=== PATIENT | female | born 2000 | race Caucasian/White ===

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

== ENCOUNTER 2021-01-06 08:07 | Emergency (ER) | payer OTHER, SELFPAY ==
[2021-01-06 08:16] VITALS: BP 137/87; PULSE 117; RESP 18; TEMP 36.9; O2SAT 99; BMI 26.1
--- NOTE | 2021-01-06 08:18 | CT_ITS ---
WS: [id number] CT ABDOMEN PELVIS TECHNIQUE: Contrast-enhanced CT of the abdomen and pelvis with coronal and sagittal reformatted image s. CLINICAL INFORMATION: abd pain COMPARISON: None. DLP: 1438.[address] scans at [facility] use at least one of these dose optimization techniques: automat ed exposure control; mA and/or kV adjustment per patient size (includes targeted exams where dose is matched to clinical indication); or iterative reconstruction. FINDINGS: Moderate amount of free fluid in the pelvis. Heterogeneous uterine enhancement with fluid in the endo metrium. Lobulated thickening of the myometrium with low-attenuation may represent fibroid along the dorsal fundus with mass effect on the endometrium. This can be further evaluated with ultrasound. Enl arged multicystic ovaries bilaterally with heterogeneous enhancement. Left ovarian cyst or corpus lut eum cyst measuring 19mm. Small amount fluid in the pericolic gutters bilaterally. Appendix in the right lower quadrant appears decompressed with intraluminal air. No definite evidence of acute appendicitis. Normal liver. A few tiny hepatic cysts. Normal gallbladder. Normal portal vein and splenic vein. Normal GE junction. Lung bases are well aerated. Normal spleen. Normal pancreas. Adrenal glands are n ormal. Normal renal parenchymal enhancement. No hydronephrosis. Normal caliber abdominal aorta. No abdominal or pelvic lymphadenopathy. No inguinal lymphadenopathy. CT/CT abdomen pelvis w con* [id number] IMPRESSION: 1. Appendix in the right lower quadrant appears decompressed with intraluminal air. No evidence of acute appendicitis. 2. Moderate amount of pelvic fluid with heterogeneous uterine enhancement. Flu id in the endometrial canal. Lobulated dorsal fundus may represent fibroid. Thi s can be further evaluated with ultrasound. 3. Multifollicular ovaries bilaterally with cyst or corpus luteum cyst measuri ng 19 mm 4. No evidence of small large bowel obstruction. 5. No other significant findings. Notified Ronny Mccarthy DO at 01/06/2021 9:39 AM.
[2021-01-06 08:22] VITALS: BP 113/81; PULSE 111; RESP 18; O2SAT 98
--- NOTE | 2021-01-06 08:36 | ED_ITS ---
HPI - Abdominal Pain General: Chief Complaint: Abdominal Pain Stated Complaint: LOWER ABD PAIN Time Seen by Provider: 01/06/21 08:09 History of Present Illness: HPI narrative: 20-year-old female presents emergency room with complaint of lower pelvic abdominal pain. Initially began across lower abdomen is migrated now to the more to the right lower quadrant. Patient had her period 2 weeks ago seem to be normal.. Patient has cramping- like pain denies any hematochezia melena hematemesis coffee-ground emesis no vomiting or diarrhea. Denies dysuria urgency or frequency no history of nephrolithiasis. MD elicited complaint: abdominal pain Onset (ago): hour(s) Pain Consistency: constant Location: RLQ, LLQ, R flank and Suprapubic Severity: mild Quality: cramping Radiation: R flank Migration to: RLQ Exacerbating factors: movement Relieving factors: rest Associated Symptoms: Reports bloating, GI cramping, nausea and poor appetite; Denies anorexia, belching, change in bowel habits, change in stool character, chills, coffee ground emesis, constipation, diarrhea, dyspepsia, dysuria, excessive flatus, fever(s), heartburn, hematochezia, hematuria, hematemesis, fecal incontinence, loose stools, melena, syncope and vomiting Related Data: Date of Last Menstrual Period: 11/29/20 Review of Systems Const: Denies: fever(s) or chills ENMT: Denies: throat pain, ear or mastoid pain, nasal discharge or nasal congestion Card: Denies: syncope Resp: Denies: dyspnea, productive cough or non-productive cough GI: Reports: nausea, bloating and GI cramping; Denies: vomiting, hematemesis, coffee ground emesis, heartburn, diarrhea, constipation, excessive flatus, fecal incontinence, change in bowel habits, change in stool character, hematochezia or melena : Denies: dysuria or hematuria Skin/Breast: Denies: rash or pruritus PFS ED PFSH: Medical History (Updated 01/06/21 @ 11:03 by Ronny Mccarthy DO) Anemia Surgical History No history of previous surgery Family History Grandmother Cancer Diabetes Mother Hypertension Father CHF (congestive heart failure) Denies family history of Clotting disorder Lung disease Stroke Social History Smoking and tobacco status: never smoked Alcohol intake: never Adopted: No Lives independently: Yes Household members: friend(s) Housing: Apartment Marital status: Single Number of children: 0 Highest education level completed: High School Graduate service: No Current occupational status: employed Current occupation: [employer] Pets and animals: No History of recent travel: No Current gender identity: Female Female Reproductive History: Date of last menstrual period: 11/29/20 Physical Exam Const: COMMON NORMALS: no acute distress GENERAL APPEARANCE: cooperative and comfortable ORIENTATION/CONSCIOUSNESS: Yes awake, Yes oriented to person, Yes oriented to place and Yes oriented to time HENMT: COMMON NORMALS: normocephalic, atraumatic and hearing grossly normal bilaterally HEAD & SCALP: normocephalic and atraumatic Neck/C-Spine: COMMON NORMALS: no JVD Resp: COMMON NORMALS: normal respiratory effort, No retractions, No use of accessory muscles and clear to auscultation bilaterally AUSCULTATION: clear to auscultation bilaterally Cardio: COMMON NORMALS: no JVD, regular rate, regular rhythm and No murmurs present (Cardio) RATE: regular rate RHYTHM: regular rhythm GI: COMMON NORMALS: Soft to palpation and No hepatosplenomegaly present AUSCULTATION: Yes normoactive bowel sounds PALPATION: Yes Soft to palpation, No Tenderness to palpation present (GI), No Guarding due to palpation present (GI) and Yes No hepatosplenomegaly present Extremity: COMMON NORMALS: normal to inspection, capillary refill normal, no clubbing, cyanosis or edema, no calf tenderness and no pedal edema Neuro: SENSORIUM/ORIENTATION: Yes oriented to person, Yes oriented to place and Yes oriented to time Skin: COMMON NORMALS: no rashes or lesions noted GENERAL SKIN EXAM: no rashes or lesions noted Course Vital Signs: Vital signs: Vital Signs Temperature 98.7 F 01/06/21 11:26 Pulse Rate 97 01/06/21 11:26 Respiratory Rate 18 01/06/21 11:26 Blood Pressure 117/66 01/06/21 11:26 Pulse Oximetry 97 01/06/21 11:26 MDM - Abdominal Pain MDM Narrative: Medical decision making narrative: CT and ultrasound show pelvic fluid consistent with a ruptured ovarian cyst. Will treat as such with pain medications nausea and discussed with the patient follow-up with her primary care doctor return if worsens. Lab Data: Labs: Lab Results 01/06/21 01/06/21 01/06/21 Range/Units 08:39 08:43 08:43 WBC 6.8 (4.5-13.0) 10^3/ uL RBC 4.26 (4.1-5.3) 10^6/u L Hgb 11.8 (11.5-15.3) g/dL Hct 35.2 L (37.0-47.0) % MCV 82.6 (81-99) fL MCH 27.7 L (28.0-34.0) pg MCHC 33.5 (30.0-36.0) g/dL RDW 12.8 (12.1-15.1) % Plt Count 256 (130-400) 10^3/c mm MPV 9.3 (7.4-10.4) fL Neut % (Auto) 57.4 % Lymph % (Auto) 31.5 % [place] % (Auto) 8.4 % Eos % (Auto) 2.2 % Baso % (Auto) 0.4 % Neut # (Auto) 3.91 (1.8-8.0) 10^3/u L Lymph # (Auto) 2.2 (1.5-6.5) 10^3/u L [place] # (Auto) 0.6 (0.2-0.9) 10^3/u L Eos # (Auto) 0.2 (0.0-0.8) 10^3/u L Baso # (Auto) 0.0 (0.0-0.1) 10^3/u L Nucleated RBC % (a uto) 0 % Nucleated RBCs # 0.0 /100WBC Sodium 137 (136-145) mmol/L Potassium 3.9 (3.5-5.1) mmol/L Chloride 104 (98-107) mmol/L Carbon Dioxide 23 (22-29) mmol/L Anion Gap 13.9 (5-19) BUN 12 (6-20) mg/dL Creatinine 0.5 (0.5-0.9) mg/dL GFR Calculation 158.9 H (90-130) mL/min Glucose 97 (65-115) mg/dL Calculated Osmolal ity 284 L (285-295) mOsm/k g Calcium 8.6 (8.5-10.5) mg/dL Total Bilirubin 0.7 (0.15-1.2) mg/dL AST 15 (0-32) U/L ALT 14 (0-33) U/L Alkaline Phosphata se 67 (35-105) IU/L Total Protein 6.9 (6.6-8.7) g/dL Albumin 4.5 (3.5-5.2) g/dL Globulin 2.4 (1.3-4.6) g/dL Lipase 37 (13-60) U/L HCG, Qual (Negative) Urine Color Yellow (Yellow) Urine Appearance Clear (CLEAR) Urine pH 5 (5-7) Ur Specific Gravit y 1.020 (1.005-1.030) Urine Protein Neg (Negative) Urine Glucose (UA) Norm (Normal) Urine Ketones Negative (Negative) Urine Blood Neg (Negative) Urine Nitrate Negative (Negative) Urine Bilirubin Neg (Negative) Urine Urobilinogen Norm (Negative) mg/dL Ur Leukocyte Diamond ase Negative (Negative) 01/06/21 Range/Units 08:43 WBC (4.5-13.0) 10^3/ uL RBC (4.1-5.3) 10^6/u L Hgb (11.5-15.3) g/dL Hct (37.0-47.0) % MCV (81-99) fL MCH (28.0-34.0) pg MCHC (30.0-36.0) g/dL RDW (12.1-15.1) % Plt Count (130-400) 10^3/c mm MPV (7.4-10.4) fL Neut % (Auto) % Lymph % (Auto) % [place] % (Auto) % Eos % (Auto) % Baso % (Auto) % Neut # (Auto) (1.8-8.0) 10^3/u L Lymph # (Auto) (1.5-6.5) 10^3/u L [place] # (Auto) (0.2-0.9) 10^3/u L Eos # (Auto) (0.0-0.8) 10^3/u L Baso # (Auto) (0.0-0.1) 10^3/u L Nucleated RBC % (a uto) % Nucleated RBCs # /100WBC Sodium (136-145) mmol/L Potassium (3.5-5.1) mmol/L Chloride (98-107) mmol/L Carbon Dioxide (22-29) mmol/L Anion Gap (5-19) BUN (6-20) mg/dL Creatinine (0.5-0.9) mg/dL GFR Calculation (90-130) mL/min Glucose (65-115) mg/dL Calculated Osmolal ity (285-295) mOsm/k g Calcium (8.5-10.5) mg/dL Total Bilirubin (0.15-1.2) mg/dL AST (0-32) U/L ALT (0-33) U/L Alkaline Phosphata se (35-105) IU/L Total Protein (6.6-8.7) g/dL Albumin (3.5-5.2) g/dL Globulin (1.3-4.6) g/dL Lipase (13-60) U/L HCG, Qual Negative (Negative) Urine Color (Yellow) Urine Appearance (CLEAR) Urine pH (5-7) Ur Specific Gravit y (1.005-1.030) Urine Protein (Negative) Urine Glucose (UA) (Normal) Urine Ketones (Negative) Urine Blood (Negative) Urine Nitrate (Negative) Urine Bilirubin (Negative) Urine Urobilinogen (Negative) mg/dL Ur Leukocyte Diamond ase (Negative) Discharge Plan Discharge Patient Disposition: Home Clinical Impression: Ovarian cyst rupture Condition: Stable Prescriptions: New hydrocodone-acetaminophen 5-325 mg tablet 1 tab PO Q6H PRN (Reason: pain) Qty: 10 RF: 0 Zofran 4 mg tablet 4 mg PO Q6H PRN (Reason: nausea and vomiting) Qty: 10 RF: 0 No Action Ortho-Novum (28) 1-35 mg-mcg tablet 1 tab PO DAILY RF: 0 Discharge Orders: Discharge ED (Routine); Ordered 01/06/21 Ordered By: Ronny Mccarthy Patient Instructions: Opioid Safety Coding Level of Care Code ED Flight Line Service Attendant for Chg Fwd Exam Comprehensive
[2021-01-06 08:49] VITALS: BP 113/81; PULSE 110; RESP 18; O2SAT 95
[2021-01-06] MEDS: ondansetron 2 mg/ML SDV 2 mL 4 MG IVP (08:53)
[2021-01-06] MEDS: sodium chloride 0.9% 1,000 ML 999 ML IV (08:53)
[2021-01-06 08:54] LABS: Add Urine Microscopic? NO; Charge for UA Resulting for Rev
[2021-01-06 08:55] LABS: Basophils % 0.4 %; Eosinophils # 0.2 10^3/uL (0.0-0.8); Eosinophils % 2.2 %; Hematocrit 35.2 % (37.0-47.0); Hemoglobin 11.8 g/dL (11.5-15.3); Lymphocytes # 2.2 10^3/uL (1.5-6.5); Lymphocytes % 31.5 %; Mean Corpuscular HGB Conc 33.5 g/dL (30.0-36.0); Mean Corpuscular Hemoglobin 27.7 pg (28.0-34.0); Mean Corpuscular Volume 82.6 fL (81-99); Mean Platelet Volume 9.3 fL (7.4-10.4); Monocytes # 0.6 10^3/uL (0.2-0.9); Monocytes % 8.4 %; Neutrophils # 3.91 10^3/uL (1.8-8.0); Neutrophils % 57.4 %; Nucleated Red Blood Cells % 0 %; Platelet Count 256 10^3/cmm (130-400); Red Blood Count 4.26 10^6/uL (4.1-5.3); Red Cell Distribution Width 12.8 % (12.1-15.1); White Blood Count 6.8 10^3/uL (4.5-13.0)
[2021-01-06 09:10] LABS: HCG, Serum Qual Negative (Negative)
[2021-01-06 09:11] LABS: Bilirubin Urine Neg (Negative); Blood Urine Neg (Negative); Glucose Urine UA Norm (Normal); Ketones Urine Negative (Negative); Leukocyte Esterase Urine Negative (Negative); Nitrate Urine Negative (Negative); Protein Urine Neg (Negative); Urine Appearance Clear (CLEAR); Urine Color Yellow (Yellow); Urobilinogen Urine Norm (Negative); pH Urine 5 (5-7)
[2021-01-06 09:13] LABS: Alanine Aminotransferase 14 U/L (0-33); Albumin Level 4.5 g/dL (3.5-5.2); Alkaline Phosphatase 67 IU/L (35-105); Anion Gap 13.9 (5-19); Aspartate Amino Transferase 15 U/L (0-32); Blood Urea Nitrogen 12 mg/dL (6-20); Calcium 8.6 mg/dL (8.5-10.5); Carbon Dioxide 23 mmol/L (22-29); Chloride 104 mmol/L (98-107); Globulin 2.4 g/dL (1.3-4.6); Glomerular Filtration Rate 158.9 mL/min (90-130); Glucose 97 mg/dL (65-115); Lipase 37 U/L (13-60); Osmolality Calculated 284 mOsm/kg (285-295); Potassium 3.9 mmol/L (3.5-5.1); Sodium 137 mmol/L (136-145); Total Bilirubin 0.7 mg/dL (0.15-1.2); Total Protein 6.9 g/dL (6.6-8.7)
[2021-01-06] MEDS: iohexol 300 mg/mL 100 mL Btl IV (09:24)
--- NOTE | 2021-01-06 09:43 | US_ITS ---
WS: [id number] ULTRASOUND PELVIS TECHNIQUE: Transabdominal. CLINICAL INFORMATION: pain : No. COMPARISON: CT earlier today FINDINGS: Uterus Orientation: Anteverted. Size: 8.5 cm x 4.8 cm x 3.2 cm Masses: Heterogeneous lobulation dorsal fundus likely representing fibroid Cervix: Normal Endometrium: Normal. Endometrium thickness: 1.0 cm. Adnexa: Left ovarian cyst measuring 1.6 x 1.5 x 1.9 cm Right ovary size: 3.8 cm x 2.0 cm x 1.6 cm. Right ovary volume: 6.3 ccm3 Left ovary size: 2.8 cm x 2.2 cm x 1.3 cm. Left ovary volume: 4.3 ccm3 Free fluid: Moderate Other findings: None. US/US pelvic complete* [id number] IMPRESSION: 1. Lobulation along the dorsal fundus measuring 1.7 x 1.6 x 1.9 cm likely repr esents fibroid. 2. Normal endometrium for patient this age measuring 10 mm. 3. No adnexal masses. 4. Left ovarian cyst 1.6 x 1.5 x 1.9 cm 5. Right ovary is normal. 6. Moderate free fluid in the cul-de-sac.
[2021-01-06] MEDS: ketorolac 30 mg/mL INJ IVP (10:00)
[2021-01-06 10:49] VITALS: BP 110/74; PULSE 100; RESP 18; O2SAT 98
[2021-01-06 11:26] VITALS: BP 117/66; PULSE 97; RESP 18; TEMP 37.1; O2SAT 97
== END 2021-01-06 11:28 | disposition home or self-care (01) ==
PROVIDERS: Nurse Practitioner Family; Emergency Provider Family Medicine
DX: N83.202 Unspecified ovarian cyst, left side (principal)
CPT/HCPCS: 74177; 76856; 80053; 81003; 83690; 84703; 85025; 96361; 96374; 96375; 99284; J1885; J2405; J7030; Q9967

== ENCOUNTER → 2021-06-30 15:36 | Outpatient (BNVA) | payer OTHER, SELFPAY | PROVIDERS: Visit Provider Family Medicine | DX: Z20.822 Contact with and (suspected) exposure to COVID-19 (principal); Z20.828 Contact with and (suspected) exposure to other viral communicable diseases | CPT/HCPCS: 87635 ==

== ENCOUNTER 2022-06-01 14:06 | Emergency (ER) | payer OTHER, SELFPAY ==
[2022-06-01 14:11] VITALS: BP 127/83; PULSE 105; RESP 18; TEMP 36.8; O2SAT 98; BMI 29.9
--- NOTE | 2022-06-01 14:19 | ED_ITS ---
HPI - General Adult General: Chief complaint: Needlestick/Injury/Exposure Stated complaint: Exposure to pt blood Time Seen by Provider: 06/01/22 14:09 History of Present Illness: Patient is a 22-year-old female who comes to the ED he after an accidental needlestick injury to her right hand. 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 She was in t he OR and during the procedure a bone hook punctured the distal end of right index finger. Denies any pain or other complaints. She does not know any medical history on the patient who was being operated on. Associated symptoms: Deny chest pain, dyspnea, headache(s), nausea, rash, palpitations or vomiting Review of Systems Const: Denies: fever(s), chills or fatigue Eyes: Denies: change in vision or eye discomfort ENMT: Denies: throat pain, odynophagia, nasal discharge or nasal congestion Card: Denies: chest pain, palpitations, edema, swelling of feet/ankles, dyspnea on exertion or orthopnea Resp: Denies: dyspnea, productive cough or non-productive cough GI: Denies: abdominal pain, nausea, vomiting, diarrhea, constipation or charlie tochezia : Denies: flank pain, dysuria or hematuria Musc: Denies: neck pain, back pain or extremity swelling Skin/Breast: Reports: new lesions (Puncture wound to right index finger); Denies: rash Neuro: Denies: headache(s), numbness in extremities or weakness in extremities PFS ED PFSH: Medical History Anemia Surgical History No history of previous surgery Family History Grandmother Cancer Diabetes Mother Hypertension Father CHF (congestive heart failure) Denies family history of Clotting disorder Lung disease Stroke Social History Smoking and tobacco status: never smoked Alcohol intake: never Adopted: No Lives independently: Yes Household members: friend(s) Housing: Apartment Marital status: Single Number of children: 0 Highest education level completed: High School Graduate service: No Current occupational status: employed Current occupation: [employer] Pets and animals: No History of recent travel: No Current gender identity: Female Female Reproductive History: Date of last menstrual period: 05/27/22 Physical Exam Const: COMMON NORMALS: no acute distress, patient oriented x3, healthy appearing and alert GENERAL APPEARANCE: cooperative and comfortable HENMT: COMMON NORMALS: normocephalic HEAD & SCALP: normocephalic MOUTH: Normal oral and palatal mucosa present THROAT: posterior oropharynx normal and uvula midline Neck/C-Spine: COMMON NORMALS: supple GENERAL: Yes normal visual inspection Resp: COMMON NORMALS: normal respiratory effort, No retractions, No use of accessory muscles and clear to auscultation bilaterally AUSCULTATION: clear to auscultation bilaterally Cardio: COMMON NORMALS: regular rate, regular rhythm, S1 normal heart sound present, S2 normal heart sound present, No gallops present (Cardio), No clicks present (Cardio), No murmurs present (Cardio) and Peripheral pulses 2+ throughout RATE: regular rate RHYTHM: regular rhythm HEART SOUNDS: S1 normal heart sound present and S2 normal heart sound present PERIPHERAL PULSES: Peripheral pulses 2+ throughout GI: COMMON NORMALS: Normal to inspection, nondistended, normoactive bowel sounds present, Soft to palpation, non-tender and no masses PALPATION: Yes Soft to palpation : COMMON NORMALS: Yes no CVA tenderness BLADDER/KIDNEY EXAM: Yes no CVA tenderness Back/Pelvis: COMMON NORMALS: no CVA tenderness Extremity: NARRATIVE EXTREMITY EXAM: Patient has small superficial appearing puncture wound to distal pad of right index finger. No erythema, warmth, swelling or drainage noted. No nailbed or nail damage seen. GENERAL: Yes normal exam except as noted Neuro: COMMON NORMALS: patient oriented x3 SENSORIUM/ORIENTATION: Yes alert GAIT: Yes Normal gait present Skin: GENERAL SKIN EXAM: dry skin Course Vital Signs: Vital signs: Vital Signs Temperature 98.2 F 06/01/22 14:11 Pulse Rate 105 H 06/01/22 14:11 Respiratory Rate 18 06/01/22 14:11 Blood Pressure 127/83 06/01/22 14:11 Pulse Oximetry 98 06/01/22 14:11 Oxygen Delivery Me thod 06/01/22 14:11 [facility] - General Adult Medical Decision Making Patient is a 22-year-old female who comes to the ED he after an accidental needlestick injury to her right hand. 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 She was in the OR and during the procedure a bone hook punctured the distal end of right index finger. Vital stable. CBC and CMP were unremarkable. Hepatitis panel and HIV labs pending. Patient was diagnosed with accidental needlestick injury with exposure to body fluid and was discharged home. She was told to contact [facility] to find out lab results. Follow-up with PCP in the next 4 to 6 weeks and repeat CBC, CMP, hepatitis panel and HIV labs. Patient understood and agreed with plan. Lab Data I reviewed the patient's lab results. : 06/01/22 14:21 06/01/22 14:21 Laboratory Results WBC 7.3 10^3/uL (4.0-10.0) 06/01/22 14: RBC 4.25 10^6/uL (4.1-5.3) 06/01/22 14: Hgb 11.6 g/dL (11.5-15.3) 06/01/22 14:21 Hct 35.4 % (37.0-47.0) L 06/01/22 14:21 MCV 83.3 fl (81-99) 06/01/22 14: MCH 27.3 pg (28.0-34.0) L 06/01/22 14: MCHC 32.8 g/dL (30.0-36.0) 06/01/22 14:21 RDW 12.5 % (12.1-15.1) 06/01/22 14:21 Plt Count 272 10^3/cmm (130-400) 06/01/22 14: MPV 9.7 fL (7.4-10.4) 06/01/22 14:21 Neut % (Auto) 59.0 % 06/01/22 14:21 Lymph % (Auto) 32.0 % 06/01/22 14:21 [place] % (Auto) 6.4 % 06/01/22 14:21 Eos % (Auto) 2.3 % 06/01/22 14:21 Baso % (Auto) 0.3 % 06/01/22 14: Neut # (Auto) 4.31 10^3/uL (1.8-7.7) 06/01/22 14:21 Lymph # (Auto) 2.3 10^3/uL (0.8-4.8) 06/01/22 14:21 [place] # (Auto) 0.5 10^3/uL (0.2-0.9) 06/01/22 14:21 Eos # (Auto) 0.2 10^3/uL (0.0-0.8) 06/01/22 14:21 Baso # (Auto) 0.0 10^3/uL (0.0-0.1) 06/01/22 14:21 Nucleated RBC % (auto) 0 % 06/01/22 14:21 Nucleated RBCs # 0.0 /100WBC 06/01/22 14:21 Sodium 138 mmol/L (136-145) 06/01/22 14:21 Potassium 4.1 mmol/L (3.5-5.1) 06/01/22 14:21 Chloride 102 mmol/L (98-107) 06/01/22 14:21 Carbon Dioxide 23 mmol/L (22-29) 06/01/22 14:21 Anion Gap 17.1 (5-19) 06/01/22 14:21 BUN 17 mg/dL (6-20) 06/01/22 14:21 Creatinine 0.6 mg/dL (0.5-0.9) 06/01/22 14:21 GFR Calculation 126.2 mL/min (90-130) 06/01/22 14:21 Glucose 101 mg/dL (65-115) 06/01/22 14:21 Calculated Osmolality 288 mOsm/kg (285-295) 06/01/22 14:21 Calcium 9.3 mg/dL (8.5-10.5) 06/01/22 14:21 Total Bilirubin 0.6 mg/dL (0.15-1.2) 06/01/22 14:21 AST 16 U/L (0-32) 06/01/22 14:21 ALT 14 U/L (0-33) 06/01/22 14:21 Alkaline Phosphatase 76 U/L (35-105) 06/01/22 14:21 Total Protein 7.4 g/dL (6.6-8.7) 06/01/22 14:21 Albumin 4.5 g/dL (3.5-5.2) 06/01/22 14:21 Globulin 2.9 g/dL (1.3-4.6) 06/01/22 14:21 Hepatitis A IgM Ab Non-reactive (Nonreactive) 06/01/22 14:21 Hep Bs Antigen Non-reactive (Nonreactive) 06/01/22 14:21 Hep Bs Antibody > 1000.0 (11.5-1000) H 06/01/22 14:21 Hep B Core Total Ab Non-reactive (Nonreactive) 06/01/22 14:21 Hepatitis C Antibody Non-reactive (Nonreactive) 06/01/22 14:21 HIV 1&2 Ab & HIV 1 Ag Non-reactive (Non-Reactiv) 06/01/22 14:21 HIV 1&2 Antibody Non-reactive (Non-Reactiv) 06/01/22 14:21 Discharge Plan Discharge Patient Disposition: Home Clinical Impression: Accidental needlestick injury with exposure to body fluid Condition: Stable Discharge Orders: Discharge ED (Routine); Ordered 06/01/22 Ordered By: Moses Gusman Discharge Diet: Regular Discharge Activity: Resume usual activity Patient Instructions: Blood/Body Fluid Exposure - Occupational, Needle Stick Injuries (ED) Activity Restrictions/Additional Instructions: Follow-up with medical provider as directed in the next 4 to 6 weeks to have repeat CBC, CMP, HIV and hepatitis panel labs done. All your labs are pending and you can call [facility] in a couple hours to find out results. R eturn to the ER or your medical provider if condition worsens. Please read and understand discharge instructions. Thank you for choosing [facility] for your healthcare needs today. Please realize this is an emergency room and that we are providing you with a medical screening exam and this may not be complete and all inclusive of all the testing and or work up that you may need to determine your ailment or severity of your illness. It is very important that you follow up as instructed or that you return to the Emergency Department should you have concerns or if your condition changes or worsens in any way. Coding Level of Care Code ED Bran Mixer for Alexis Alexander Exam Comprehensive
[2022-06-01 14:43] LABS: Basophils % 0.3 %; Eosinophils # 0.2 10^3/uL (0.0-0.8); Eosinophils % 2.3 %; Hematocrit 35.4 % (37.0-47.0); Hemoglobin 11.6 g/dL (11.5-15.3); Lymphocytes # 2.3 10^3/uL (0.8-4.8); Mean Corpuscular HGB Conc 32.8 g/dL (30.0-36.0); Mean Corpuscular Hemoglobin 27.3 pg (28.0-34.0); Mean Corpuscular Volume 83.3 fl (81-99); Mean Platelet Volume 9.7 fL (7.4-10.4); Monocytes # 0.5 10^3/uL (0.2-0.9); Monocytes % 6.4 %; Neutrophils # 4.31 10^3/uL (1.8-7.7); Nucleated Red Blood Cells % 0 %; Platelet Count 272 10^3/cmm (130-400); Red Blood Count 4.25 10^6/uL (4.1-5.3); Red Cell Distribution Width 12.5 % (12.1-15.1); White Blood Count 7.3 10^3/uL (4.0-10.0)
[2022-06-01 14:50] LABS: Alanine Aminotransferase 14 U/L (0-33); Albumin Level 4.5 g/dL (3.5-5.2); Alkaline Phosphatase 76 U/L (35-105); Anion Gap 17.1 (5-19); Aspartate Amino Transferase 16 U/L (0-32); Blood Urea Nitrogen 17 mg/dL (6-20); Calcium 9.3 mg/dL (8.5-10.5); Carbon Dioxide 23 mmol/L (22-29); Chloride 102 mmol/L (98-107); Creatinine Clr Calc Pharmacy 151.8749; Globulin 2.9 g/dL (1.3-4.6); Glomerular Filtration Rate 126.2 mL/min (90-130); Glucose 101 mg/dL (65-115); Osmolality Calculated 288 mOsm/kg (285-295); Potassium 4.1 mmol/L (3.5-5.1); Sodium 138 mmol/L (136-145); Total Bilirubin 0.6 mg/dL (0.15-1.2); Total Protein 7.4 g/dL (6.6-8.7)
[2022-06-01 14:56] LABS: HIV 1 & 2 Antibody Non-Reactive (Non-Reactiv); HIV 1 & 2 Antigen Non-Reactive (Non-Reactiv)
[2022-06-01 15:06] LABS: Hepatitis A Antibody IgM Non-Reactive (Nonreactive); Hepatitis B Core AB, Total Non-Reactive (Nonreactive); Hepatitis B Surface Antigen Non-Reactive (Nonreactive); Hepatitis C Virus Antibody Non-Reactive (Nonreactive)
[2022-06-01 17:29] LABS: Hepatitis B Surface AB > 1000.0 (11.5-1000)
== END 2022-06-01 14:57 | disposition home or self-care (01) ==
PROVIDERS: Emergency Provider Physician Assistant
DX: S61.230A Puncture wound without foreign body of right index finger without damage to nail, initial encounter (principal); W46.1XXA Contact with contaminated hypodermic needle, initial encounter
CPT/HCPCS: 80053; 85025; 86705; 86706; 86709; 86803; 87340; 87806; 99283

== ENCOUNTER 2022-08-29 08:42 | Outpatient (CLI) | payer SELFPAY ==
[2022-08-29 09:07] LABS: HF Add Manual Diff No
[2022-08-29 09:23] LABS: Basophils % 0.4 %; Eosinophils # 0.1 10^3/uL (0.0-0.8); Eosinophils % 1.3 %; Hematocrit 35.5 % (37.0-47.0); Hemoglobin 11.8 g/dL (11.5-15.3); Lymphocytes # 2.2 10^3/uL (0.8-4.8); Mean Corpuscular HGB Conc 33.2 g/dL (30.0-36.0); Mean Corpuscular Hemoglobin 27.1 pg (28.0-34.0); Mean Corpuscular Volume 81.6 fl (81-99); Mean Platelet Volume 9.6 fL (7.4-10.4); Monocytes # 0.5 10^3/uL (0.2-0.9); Monocytes % 8.8 %; Neutrophils # 2.75 10^3/uL (1.8-7.7); Neutrophils % 49.5 %; Nucleated Red Blood Cells % 0 %; Platelet Count 264 10^3/cmm (130-400); Red Blood Count 4.35 10^6/uL (4.1-5.3); Red Cell Distribution Width 12.7 % (12.1-15.1); White Blood Count 5.6 10^3/uL (4.0-10.0)
== END 2022-08-29 08:43 | disposition home or self-care (01) ==
LOC: LAB 08:45
PROVIDERS: Visit Provider Dermatology
DX: Z01.89 Encounter for other specified special examinations (principal)

== ENCOUNTER 2022-09-26 10:49 | Outpatient (CLI) | payer OTHER, SELFPAY ==
--- NOTE | 2022-09-26 | US_ITS ---
WS: [id number] TRANSABDOMINAL PELVIC AND TRANSVAGINAL PELVIC ULTRASOUND HISTORY: PELVIC PAIN COMPARISON: 01/06/2021 Uterus: 6.7 cm x 5.0 cm x 3.7 cm. On transvaginal imaging the uterus is retroverted. No fibroid is id entified today. Endometrium: 0.4 cm. Normal size endometrium. Right ovary: 3.9 cm x 2.4 cm x 2.9 cm. Normal size ovary. Numerous follicles throughout the ovary. Pr obably greater than 20 and total raising the possibility of polycystic ovarian disease. Left ovary: 3.0 cm x 4.3 cm x 1.5 cm. Normal size ovary with numerous small follicles throughout the ovary. Greater than 20 in number. Free fluid: No free fluid. US/US pelvic with transvaginal IMPRESSION: 1. Normal endometrium. 2. Numerous bilateral ovarian follicles. Greater than 20 in number within each ovary. Consider polycystic ovarian disease.
== END 2022-09-26 10:50 | disposition home or self-care (01) ==
PROVIDERS: Visit Provider Nurse Practitioner Family
DX: R10.2 Pelvic and perineal pain (principal)
CPT/HCPCS: 76830; 76856

== ENCOUNTER 2022-11-28 08:04 | Outpatient (CLI) | payer SELFPAY ==
[2022-11-28 08:30] LABS: HF Add Manual Diff No
[2022-11-28 08:40] LABS: Basophils % 0.4 %; Eosinophils # 0.1 10^3/uL (0.0-0.8); Eosinophils % 1.7 %; Hematocrit 34.6 % (37.0-47.0); Hemoglobin 11.2 g/dL (11.5-15.3); Lymphocytes # 1.7 10^3/uL (0.8-4.8); Mean Corpuscular HGB Conc 32.4 g/dL (30.0-36.0); Mean Corpuscular Hemoglobin 26.5 pg (28.0-34.0); Mean Platelet Volume 9.6 fL (7.4-10.4); Monocytes # 0.5 10^3/uL (0.2-0.9); Monocytes % 10.7 %; Neutrophils # 2.25 10^3/uL (1.8-7.7); Neutrophils % 49.2 %; Nucleated Red Blood Cells % 0 %; Platelet Count 240 10^3/cmm (130-400); Red Blood Count 4.22 10^6/uL (4.1-5.3); Red Cell Distribution Width 12.1 % (12.1-15.1); White Blood Count 4.6 10^3/uL (4.0-10.0)
[2022-11-28 08:53] LABS: Alanine Aminotransferase 18 U/L (0-33); Albumin Level 4.6 g/dL (3.5-5.2); Alkaline Phosphatase 74 U/L (35-105); Aspartate Amino Transferase 20 U/L (0-32); Blood Urea Nitrogen 13 mg/dL (6-20); Calcium 9.1 mg/dL (8.5-10.5); Carbon Dioxide 25 mmol/L (22-29); Chloride 102 mmol/L (98-107); Cholesterol 216 mg/dL (0-200); Globulin 2.7 g/dL (1.3-4.6); Glomerular Filtration Rate 155.7 mL/min (90-130); Glucose 96 mg/dL (65-115); HDL Cholesterol 60 mg/dL (60-100); LDL Cholesterol Calculated 144 mg/dL (50-129); Osmolality Calculated 282 mOsm/kg (285-295); Sodium 136 mmol/L (136-145); Total Bilirubin 0.8 mg/dL (0.15-1.2); Total Protein 7.3 g/dL (6.6-8.7); Triglycerides 62 mg/dL (0-150)
[2022-11-28 09:04] LABS: Estmated Average Glucose 94; Hemoglobin A1C 4.9 % (4.0-6.0)
== END 2022-11-28 08:05 | disposition home or self-care (01) ==
PROVIDERS: Visit Provider Dermatology
DX: Z01.89 Encounter for other specified special examinations (principal)
CPT/HCPCS: 36415